=== PATIENT | female | born 1930 | race Caucasian/White ===

== ENCOUNTER 2017-04-15 08:29 | Inpatient (IN) ==
[2017-04-15 09:14] LABS: MANUAL DIFF NEEDED? NO
[2017-04-15 09:17] LABS: BASO% 0.2 % (0.0-0.8); EOS# 0.09 X1000 (0.0-0.7); EOS% 0.8 % (0.0-10.0); HEMATOCRIT 38.7 % (37.0-47.0); HEMOGLOBIN 12.3 g/dL (12.0-16.0); IMM GRAN# 0.04 X1000 (0.0-0.04); IMM GRAN% 0.3 % (0.0-0.5); LYMPH# 1.19 X1000 (1.2-3.4); LYMPH% 10.3 % (20.5-51.1); MCH 29.8 PG (27-31); MCHC 31.8 g/dL (33-37); MCV 93.7 FL (81-99); MONO# 1.18 X1000 (0.11-0.59); MONO% 10.3 % (1.7-9.3); MPV 10.6 FL (7.4-10.4); NEUT% 78.1 % (42.2-75.2); PLT 249 X1000 (130-400); RBC 4.13 XMIL (4.2-5.4)
[2017-04-15 09:23] LABS: URINE CULTURE NEEDED? NO; URINE MICRO REVIEW NEEDED? NO; URINE SOURCE CATH
[2017-04-15 09:28] LABS: BILIRUBIN URINE NEGATIVE (NEGATIVE); BLOOD URINE NEGATIVE (NEGATIVE); COLOR YELLOW; GLUCOSE URINE NEGATIVE (NEGATIVE); LEUKOCYTES URINE NEGATIVE (NEGATIVE); NITRITE URINE NEGATIVE (NEGATIVE); PH URINE 6.5; PROTEIN URINE TRACE mg/dL (NEGATIVE); SP GRAVITY URINE 1.019; TURBIDITY URINE CLEAR (CLEAR); UROBILINOGEN URINE NORMAL (NORMAL)
[2017-04-15 09:30] LABS: UR EPITHELIAL CELLS <10 /HPF (<10); URINE BACTERIA NEGATIVE /HPF; URINE RBC <10 /HPF (<10); URINE WBC <10 /HPF (<10)
[2017-04-15 09:51] LABS: ALBUMIN 3.8 g/dL (3.5-5.0); CALCIUM 9.2 mg/dL (8.8-10.2); POTASSIUM 3.6 mmol/L (3.5-5.1); TOTAL BILIRUBIN 0.5 mg/dL (0.20-1.00)
--- NOTE | 2017-04-15 10:59 | Diag Imaging Result Doc PS360 ---
EXAM: CHEST-PORTABLE HISTORY: sob/cp TECHNIQUE: AP portable at 1050 COMMENT: The inspiration is suboptimal. Considering the degree of inspiration, the appearance of the chest has not changed significantly since 07/19/2016. IMPRESSION: Stable chest. Electronically signed by Isaac Garcia 04/15/2017 10:56 AM
--- NOTE | 2017-04-15 11:16 | Diag Imaging Result Doc PS360 ---
EXAM: CT ABD/PELVIS W/ IV CONT ONLY HISTORY: confusion, belly pain TECHNIQUE: CT of the abdomen and pelvis with intravenous contrast and dose reduction (clarity.) COMMENT: The current study is compared with the study with oral but no intravenous contrast performed at the imaging Center on 04/09/2017. There is considerable retained barium in the colon from the previous examination. There is atherosclerotic calcification throughout the aorta particularly distally without evidence of aneurysm. The renal and mesenteric arteries appear to be patent. The spleen, adrenal glands, and pancreas are within normal limits. The liver is unremarkable in appearance. Some beam hardening artifact is present due to the patient's inability to raise the arms above the abdomen. There is atelectasis in both lung bases with a small amount of pleural fluid on the right. This is worse than on the previous study. There is no evidence of bowel obstruction. Pelvis: There is diverticulosis in the sigmoid colon without evidence of active diverticulitis. The appendix is normal in appearance. There is a moderately large amount of stool present in the cecum. Gas, concreted barium, and stool are noted in the rectum. There is a Harding catheter in the bladder. There is some motion artifact. The regional skeleton appears to be intact. IMPRESSION: Slightly worsened atelectasis and small pleural effusions bilaterally. Constipation with retained barium in the colon. Electronically signed by Isaac Garcia 04/15/2017 11:14 AM
[2017-04-15] MEDS ORDERED: ZOFRAN IV PRN (11:55)
[2017-04-15] MEDS: NS 1,000 ML IV SCH ×2 (12:54→21:44)
[2017-04-15] MEDS ORDERED: GOLYTELY PO ONE (14:00)
[2017-04-15 16:05] LABS: FREE T4 1.06 ng/dL (0.93-1.70); VITAMIN D 25 HYDROXY 40.8 NG/DL
[2017-04-15] MEDS: LACTULOSE PO SCH (18:37)
[2017-04-15] MEDS: MIRALAX PO SCH (18:38)
[2017-04-15] MEDS: LOVENOX SUBQ SCH (18:45)
[2017-04-15] MEDS: DULCOLAX PR SCH (18:46)
[2017-04-15] MEDS ORDERED: LUMIGAN 0.01% OPH SOLUTION BOTH EYES SCH (21:00)
[2017-04-15] MEDS ORDERED: LUMIGAN 0.01% OPH SOLUTION MISC SCH (21:00)
[2017-04-15] MEDS: LUMIGAN 0.01% OPH SOLUTION BOTH EYES SCH (21:45)
[2017-04-16] MEDS: LACTULOSE PO SCH ×4 (02:14→16:57)
[2017-04-16] MEDS: COLACE PO SCH ×3 (02:15→22:33)
[2017-04-16] MEDS: MIRALAX PO SCH ×3 (02:15→22:32)
[2017-04-16] MEDS: NS 1,000 ML IV SCH ×2 (02:15→22:33)
[2017-04-16 05:45] LABS: HEMATOCRIT 31.1 % (37.0-47.0); MCH 30.5 PG (27-31); MCHC 32.2 g/dL (33-37); MCV 94.8 FL (81-99); MPV 11.1 FL (7.4-10.4); RBC 3.28 XMIL (4.2-5.4)
[2017-04-16 06:09] LABS: AGAP 16; BUN 12 mg/dL (8-22); CALCIUM 7.5 mg/dL (8.8-10.2); CHLORIDE 103 mmol/L (98-107); COSMO 282; POTASSIUM 3.4 mmol/L (3.5-5.1); SODIUM 142 mmol/L (136-145); TCO2 23 mmol/L (25-35)
[2017-04-16] MEDS: DULCOLAX PR SCH (08:10)
[2017-04-16] MEDS ORDERED: KLOR-CON POWDER PACKET PO ONE (08:21)
[2017-04-16] MEDS ORDERED: VANCOMYCIN IV PER PHARMACY MISC SCH (11:30)
[2017-04-16] MEDS ORDERED: CALMOSEPTINE OINTMENT TOP PRN (11:56)
[2017-04-16] MEDS: VANCOMYCIN 1 GM/NS 1 GM/250 ML IVPB IV SCH (14:07)
[2017-04-16] MEDS: LOVENOX SUBQ SCH (14:08)
[2017-04-16] MEDS: LUMIGAN 0.01% OPH SOLUTION BOTH EYES SCH (22:32)
[2017-04-17] MEDS ORDERED: CALMOSEPTINE OINTMENT TOP PRN (01:42)
[2017-04-17 06:10] LABS: MANUAL DIFF NEEDED? NO
[2017-04-17 06:16] LABS: BASO% 0.2 % (0.0-0.8); EOS# 0.24 X1000 (0.0-0.7); EOS% 2.3 % (0.0-10.0); HEMATOCRIT 29.7 % (37.0-47.0); HEMOGLOBIN 9.7 g/dL (12.0-16.0); IMM GRAN# 0.02 X1000 (0.0-0.04); IMM GRAN% 0.2 % (0.0-0.5); LYMPH# 2.13 X1000 (1.2-3.4); LYMPH% 20.7 % (20.5-51.1); MCH 29.7 PG (27-31); MCHC 32.7 g/dL (33-37); MCV 90.8 FL (81-99); MONO# 1.15 X1000 (0.11-0.59); MONO% 11.2 % (1.7-9.3); MPV 11.3 FL (7.4-10.4); NEUT% 65.4 % (42.2-75.2); PLT 229 X1000 (130-400); RBC 3.27 XMIL (4.2-5.4)
[2017-04-17 06:34] LABS: AGAP 13; BUN 5 mg/dL (8-22); CALCIUM 7.1 mg/dL (8.8-10.2); CHLORIDE 106 mmol/L (98-107); COSMO 276; SODIUM 140 mmol/L (136-145); TCO2 21 mmol/L (25-35)
[2017-04-17] MEDS ORDERED: KLOR-CON PO ONE (08:07)
[2017-04-17] MEDS ORDERED: MAGNESIUM SULFATE 2 GM/S.W.I. 2 GM/50 ML IVPB IV ONE (08:09)
--- NOTE | 2017-04-17 08:13 | Diag Imaging Result Doc PS360 ---
EXAM: FLAT/UPRIGHT ABD/1 VIEW CHEST HISTORY: constipation TECHNIQUE: AP upright chest flat and upright abdomen three views COMMENT: There is gas throughout the colon and some small bowel gas without evidence of dilatation. The stomach is not distended. There is no evidence organomegaly or mass. The lungs are not well-expanded. The appearance of the chest has not changed significantly otherwise since 04/15/2017. IMPRESSION: The possibility of a mild ileus cannot be excluded. Electronically signed by Isaac Garcia 04/17/2017 8:11 AM
[2017-04-17] MEDS: MIRALAX PO SCH (08:58)
[2017-04-17] MEDS: DULCOLAX PR SCH (08:59)
[2017-04-17] MEDS: FOLIC ACID PO SCH (08:59)
[2017-04-17] MEDS: LACTULOSE PO SCH ×2 (08:59→15:05)
[2017-04-17] MEDS: COLACE PO SCH (08:59)
[2017-04-17] MEDS: NS 1,000 ML IV SCH ×2 (13:11→15:03)
[2017-04-17] MEDS ORDERED: PROTONIX IV SCH (13:30)
[2017-04-17] MEDS ORDERED: SODIUM CHLORIDE 0.9% INJ SCH (13:30)
[2017-04-17] MEDS: SODIUM CHLORIDE 0.9% INJ SCH (15:03)
[2017-04-17] MEDS: PROTONIX IV SCH (15:03)
[2017-04-17] MEDS: LOVENOX SUBQ SCH (15:06)
[2017-04-17] MEDS: LUMIGAN 0.01% OPH SOLUTION BOTH EYES SCH (22:00)
[2017-04-18] MEDS: NS 1,000 ML IV SCH ×2 (03:49→19:11)
[2017-04-18] MEDS: LACTULOSE PO SCH ×3 (03:49→13:32)
[2017-04-18] MEDS: COLACE PO SCH ×3 (03:49→21:39)
[2017-04-18] MEDS: MIRALAX PO SCH ×3 (03:51→21:39)
[2017-04-18 05:14] LABS: HEMATOCRIT 28.4 % (37.0-47.0); HEMOGLOBIN 9.5 g/dL (12.0-16.0); MCH 30.5 PG (27-31); MCHC 33.5 g/dL (33-37); MCV 91.3 FL (81-99); MPV 10.9 FL (7.4-10.4); RBC 3.11 XMIL (4.2-5.4)
[2017-04-18 05:44] LABS: AGAP 13; BUN 3 mg/dL (8-22); CHLORIDE 109 mmol/L (98-107); COSMO 281; POTASSIUM 3.2 mmol/L (3.5-5.1); SODIUM 143 mmol/L (136-145); TCO2 21 mmol/L (25-35)
[2017-04-18] MEDS ORDERED: CALCIUM GLUCONATE 1 GM in NS 50 ML IV ONE (06:20)
[2017-04-18] MEDS ORDERED: KCL IV ONE (06:26)
[2017-04-18] MEDS ORDERED: NS IV ONE (06:26)
[2017-04-18] MEDS ORDERED: CALCIUM GLUCONATE 4.65 MEQ in NS 50 ML IV ONE (08:30)
[2017-04-18] MEDS ORDERED: POTASSIUM CHLORIDE 40 MEQ in NS 250 ML IV ONE (09:00)
[2017-04-18] MEDS: CENTRUM SILVER PO SCH (09:37)
[2017-04-18] MEDS: FOLIC ACID PO SCH (09:38)
[2017-04-18] MEDS: DULCOLAX PR SCH (09:39)
--- NOTE | 2017-04-18 13:13 | Diag Imaging Result Doc PS360 ---
KUB ABDOMEN - 04/18/2017 INDICATION: evaluate for constipation or obstruction TECHNIQUE: There is severe patient motion artifact. Detail is extremely poor. COMPARISON: None FINDINGS: No obvious bowel obstruction. No significant constipation. IMPRESSION: No acute disease. Electronically signed by John Valentin 04/18/2017 1:11 PM
[2017-04-18] MEDS: SODIUM CHLORIDE 0.9% INJ SCH (13:34)
[2017-04-18] MEDS: LOVENOX SUBQ SCH (13:34)
[2017-04-18] MEDS: PROTONIX IV SCH (13:34)
[2017-04-18] MEDS: VANCOMYCIN 1 GM/NS 1 GM/250 ML IVPB IV SCH (13:38)
[2017-04-18] MEDS ORDERED: XYLOCAINE-MPF 2% ONE (14:47)
[2017-04-18] MEDS ORDERED: QUELICIN (DOSE) ONE ×2 (14:47→15:15)
[2017-04-18] MEDS ORDERED: ZOFRAN ONE ×2 (14:53→17:21)
[2017-04-18] MEDS ORDERED: KEFZOL 1 GM/D5W 1 GM/50 ML IVPB IV ONE (15:00)
[2017-04-18] MEDS ORDERED: ROBINUL ONE (15:01)
[2017-04-18] MEDS ORDERED: NEOSTIGMINE ONE (15:01)
[2017-04-18] MEDS ORDERED: AMIDATE ONE (15:14)
[2017-04-18] MEDS ORDERED: SENSORCAINE 0.5%-EPI 1:200,000 ONE (16:19)
[2017-04-18] MEDS ORDERED: LR 1,000 ML ONE (16:19)
[2017-04-18] MEDS ORDERED: SODIUM CHLORIDE 0.9% ONE (16:19)
[2017-04-18] MEDS ORDERED: LACTULOSE PO PRN (16:23)
[2017-04-18] MEDS ORDERED: DULCOLAX PR PRN (16:23)
[2017-04-18] MEDS ORDERED: FENTANYL ONE (16:55)
--- NOTE | 2017-04-18 17:43 | Diag Imaging Result Doc PS360 ---
EXAM: OPERATIVE CHOLANGIOGRAM HISTORY: CHOLECYSTITIS TECHNIQUE: Intraoperative cholangiogram, two images COMMENT: There is contrast opacification of the cystic and common bile duct with some opacification of the common hepatic and intrahepatic bile ducts. No filling defects or obstructing lesions are demonstrated. There is minimal opacification of the distal pancreatic duct which appears to join in a short common trunk with the common bile duct. Contrast is demonstrated in the duodenum. IMPRESSION: No evidence of retained stones. Electronically signed by Isaac Garcia 04/18/2017 5:40 PM
[2017-04-18] MEDS: ROCEPHIN 1 GM in NS 50 ML IV SCH (21:37)
[2017-04-18] MEDS: PERIDEX MT SCH (21:39)
[2017-04-18] MEDS: LUMIGAN 0.01% OPH SOLUTION BOTH EYES SCH (21:41)
[2017-04-19 05:37] LABS: BASO% 0.2 % (0.0-0.8); EOS# 0.34 X1000 (0.0-0.7); EOS% 3.4 % (0.0-10.0); HEMATOCRIT 29.7 % (37.0-47.0); HEMOGLOBIN 9.8 g/dL (12.0-16.0); IMM GRAN# 0.03 X1000 (0.0-0.04); IMM GRAN% 0.3 % (0.0-0.5); LYMPH# 1.87 X1000 (1.2-3.4); LYMPH% 18.4 % (20.5-51.1); MANUAL DIFF NEEDED? NO; MCH 29.7 PG (27-31); MONO# 1.12 X1000 (0.11-0.59); MPV 10.5 FL (7.4-10.4); NEUT% 66.7 % (42.2-75.2); PLT 284 X1000 (130-400)
[2017-04-19 05:56] LABS: AGAP 16; BUN 4 mg/dL (8-22); CALCIUM 7.4 mg/dL (8.8-10.2); CHLORIDE 104 mmol/L (98-107); COSMO 281; POTASSIUM 3.2 mmol/L (3.5-5.1); SODIUM 143 mmol/L (136-145); TCO2 23 mmol/L (25-35)
[2017-04-19] MEDS ORDERED: APRESOLINE IV PRN (08:33)
[2017-04-19] MEDS ORDERED: MAGNESIUM SULFATE 2 GM/S.W.I. 2 GM/50 ML IVPB IV ONE (08:34)
[2017-04-19] MEDS: NS 1,000 ML IV SCH (08:58)
[2017-04-19] MEDS ORDERED: APRESOLINE PO SCH (09:00)
[2017-04-19] MEDS ORDERED: POTASSIUM CHLORIDE 40 MEQ in 1/2 NS 250 ML IV ONE (09:00)
[2017-04-19] MEDS: FOLIC ACID PO SCH (09:00)
[2017-04-19] MEDS: CENTRUM SILVER PO SCH (09:00)
[2017-04-19] MEDS: MIRALAX PO SCH ×2 (09:00→21:10)
[2017-04-19] MEDS: COLACE PO SCH ×2 (09:00→21:10)
[2017-04-19] MEDS: SODIUM CHLORIDE 0.9% INJ SCH (13:11)
[2017-04-19] MEDS: PROTONIX IV SCH (13:12)
[2017-04-19] MEDS: LOVENOX SUBQ SCH (13:15)
[2017-04-19] MEDS: NORVASC PO SCH ×2 (13:20→21:03)
[2017-04-19] MEDS: PERIDEX MT SCH ×2 (13:46→21:10)
[2017-04-19] MEDS: LUMIGAN 0.01% OPH SOLUTION BOTH EYES SCH (21:12)
[2017-04-19] MEDS: APRESOLINE PO SCH (21:15)
[2017-04-19] MEDS: ROCEPHIN 1 GM in NS 50 ML IV SCH (23:27)
[2017-04-20] MEDS: APRESOLINE PO SCH (05:04)
[2017-04-20 06:17] LABS: AGAP 9; BUN 4 mg/dL (8-22); CALCIUM 8.2 mg/dL (8.8-10.2); CHLORIDE 103 mmol/L (98-107); COSMO 275; POTASSIUM 2.8 mmol/L (3.5-5.1); SODIUM 139 mmol/L (136-145); TCO2 27 mmol/L (25-35)
[2017-04-20] MEDS ORDERED: KLOR-CON PO ONE (08:04)
[2017-04-20 08:28] VITALS: BP 135/70
[2017-04-20] MEDS ORDERED: KLOR-CON PO SCH (09:00)
[2017-04-20] MEDS ORDERED: TYLENOL PO PRN (09:35)
[2017-04-20] MEDS: CENTRUM SILVER PO SCH (10:16)
[2017-04-20] MEDS: MIRALAX PO SCH (10:16)
[2017-04-20] MEDS: NORVASC PO SCH (10:16)
[2017-04-20] MEDS: COLACE PO SCH (10:16)
[2017-04-20] MEDS: FOLIC ACID PO SCH (10:16)
[2017-04-20] MEDS: PERIDEX MT SCH (10:18)
[2017-04-20] MEDS ORDERED: KEFLEX PO SCH (21:00)
== END 2017-04-20 12:26 | disposition home health service (06) ==
LOC: ED 08:29 → 4N 13:14 → SUATTDRO 13:14 → 4N 14:07
PROVIDERS: ATTEND Internal Medicine